=== PATIENT | female | born 1965 | race African-American/Black ===

== ENCOUNTER 2024-12-20 17:33 | Emergency (ER) | payer SELFPAY ==
--- NOTE | ~2024-12-20 | XR_ITS ---
EXAMINATION: XR finger 5th RT min 2V DATE: 12/20/2024 18:12 INDICATION: Hyperextension injury of the fifth digit TECHNIQUE: Dorsal palmar, lateral and oblique views of the right fifth digit were obtained COMPARISON: None FINDINGS: Bone alignment is normal. No fracture. 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 Soft tissues are unremarkable. IMPRESSION: 1. No acute osseous adenopathy. Reviewed, dictated and finalized at location A.
[2024-12-20 17:38] VITALS: BP 149/90; PULSE 79; RESP 16; TEMP 36.4; O2SAT 97
--- NOTE | 2024-12-20 18:19 | ED_ITS ---
HPI - Extremity Injury (Upper) General Chief Complaint: Extremity Injury, Upper Stated Complaint: finger injury Time Seen by Provider: 12/20/24 17:39 Source: patient Mode of arrival: ambulatory Limitations: no limitations History of Present Illness HPI narrative: This is a 59-year-old female that presents to the emergency department for right finger injury. Sustained just prior to arrival. Reports she was cleaning a couch and her finger got bent backwards. Reports pain and decreased range of motion. Denies numbness. Related Data Allergies Allergy/AdvReac Type Severity Reaction Status Date / Time No Known Allergies Allergy Verified 12/20/24 17:43 Review of Systems Review of Systems: All systems reviewed & are unremarkable except as noted in HPI and below Exam Narrative: GENERAL: Well-appearing, well-nourished, and in no acute distress. HEAD: Normocephalic, atraumatic. EYES: EOMI. EXTREMITIES: Normal range of motion. No edema or obvious deformity. SKIN: Warm, dry, no rash. NEURO: No focal deficits. Alert and oriented x3. PSYCH: Normal mood and affect Course Vital Signs Vital signs: Vital Signs Temperature 97.6 F 12/20/24 17:38 Pulse Rate 79 12/20/24 17:38 Respiratory Rate 16 12/20/24 17:38 Blood Pressure 149/90 H 12/20/24 17:38 Pulse Oximetry 97 12/20/24 17:38 Oxygen Delivery Room Air 12/20/24 17:38 Temperature 97.6 F 12/20/24 17:38 Pulse Rate 79 12/20/24 17:38 Respiratory Rate 16 12/20/24 17:38 Blood Pressure 149/90 H 12/20/24 17:38 Pulse Oximetry 97 12/20/24 17:38 Oxygen Delivery Room Air 12/20/24 17:38 MDM - Extremity Injury (Upper) MDM Narrative Medical decision making narrative: Patient presents to the emergency department for right 5th finger injury sustained just prior to arrival. Patient is neurovascularly intact. Right 5th finger x-ray without acute osseous abnormalities. Patient placed in a finger splint. Is to follow up with primary provider. She was given warnings to return to the ER Differential Diagnosis Differential diagnosis: Likely finger sprain and dislocation of finger Imaging Data Radiologist's impression: ITS Impressions Finger X-Ray 12/20/24 18:14 IMPRESSION: 1. No acute osseous adenopathy. Critical Care Time Critical Care Time Critical Care Time: No Discharge Plan Discharge Clinical Impression: Finger sprain Qualifiers: Encounter type: initial encounter Finger: little finger Sprain of finger site: interphalangeal joint Laterality: right Qualified Code(s): S63.636A - Sprain of interphalangeal joint of right little finger, initial encounter Patient Disposition: Home Condition: Stable Instructions: Finger Sprain (ED) Additional Instructions: Return to the ER if you experience fever, redness and swelling of your extremity, numbness or any other symptoms that are concerning to you Wear finger splint. Ice and elevate. Tylenol or Ibuprofen as needed for pain Follow up with your doctor for further care. Patient Language: Camb[place]ian Follow-up/Referrals: Mari Monson MD [Physician, Plastic Surgery] Anuj,Debbie Padilla PA-C [Primary Care Provider]
[2024-12-20 18:47] VITALS: BP 125/68; PULSE 76; RESP 16; TEMP 36.4; O2SAT 98
== END 2024-12-20 18:48 | disposition home or self-care (01) ==
LOC: ANHED 18:33
PROVIDERS: Emergency Provider Physician Assistant; PCP Physician Assistant
DX: S63.636A Sprain of interphalangeal joint of right little finger, initial encounter (principal); X50.9XXA Other and unspecified overexertion or strenuous movements or postures, initial encounter
CPT/HCPCS: 29130; 73140; 99283